=== PATIENT | female | born 1990 | race Caucasian/White ===

== ENCOUNTER 2018-12-31 08:12 | Inpatient (IN) ==
[2018-12-31] MEDS ORDERED: LACTATED RINGERS 250 ML IV ONE (08:48)
[2018-12-31] MEDS ORDERED: CARBOPROST TROMETHAMINE 250 MCG/ML AMP IM PRN (08:48)
[2018-12-31] MEDS ORDERED: miSOPROStol 200 MCG TABLET VAG PRN (08:48)
[2018-12-31] MEDS ORDERED: ONDANSETRON 4 MG/2 ML VIAL IV PRN ×2 (08:48→17:16)
[2018-12-31] MEDS ORDERED: ePHEDrine 50 MG/ML AMP IV PRN (08:48)
[2018-12-31] MEDS ORDERED: diphenhydrAMINE 50 MG/1 ML VIAL IV PRN (08:48)
[2018-12-31] MEDS ORDERED: hydrOXYzine HCL 25 MG/1 ML VIAL IM PRN (08:48)
[2018-12-31] MEDS ORDERED: NALOXONE 0.4 MG/ML VIAL IV PRN (08:48)
[2018-12-31] MEDS ORDERED: BUTORPHANOL 2 MG/ML VIAL IV PRN (08:48)
[2018-12-31] MEDS ORDERED: PROMETHAZINE 25 MG/1 ML VIAL IM PRN (08:48)
[2018-12-31] MEDS ORDERED: fentaNYL 2 MCG/ROPIV 0.2% EPID 100 ML EPIDURAL SCH (09:00)
[2018-12-31 09:10] LABS: Basophils % 0.1 % (0.0-0.8); Eosinophils % 0.4 % (0.00-10.9); Hematocrit 32.8 VOL% (35.7-47.0); Hemoglobin 10.4 GM/DL (12.0-16.0); Immature Granulocytes % 0.6 %; Immature Granulocytes Absolute 0.06 #; Lymphocytes # 1.2 10*3/uL (1.4-4.0); Lymphocytes % 12.1 % (21.3-54.2); Mean Corpuscular HGB Conc 31.7 GM/DL (32-36); Mean Corpuscular Hemoglobin 28 PG (27-34); Monocytes # 0.7 10*3/uL (0.11-0.8); Monocytes % 6.7 % (1.7-12.7); Neutrophils % 80.1 % (38.7-73.9); Platelet Count 198 T/CUMM (130-400); Red Blood Count 3.77 MC/CUMM (3.8-5.5); Red Cell Distribution Width 15.3 % (9.3-17.3); White Blood Count 9.9 T/CUMM (4-12)
[2018-12-31 09:46] LABS: Free T4 (Free Thyroxine) 1.03 NG/DL (0.76-1.46); Thyroid Stimulating Hormone 1.52 uIU/ml (0.358-3.74)
[2018-12-31] MEDS: FAMOTIDINE 20 MG/2 ML VIAL IV SCH (09:53)
[2018-12-31] MEDS ORDERED: CITRIC ACID/SODIUM CITRATE 30 ML UDCUP ONE (09:58)
[2018-12-31] MEDS: LACTATED RINGERS 1,000 ML IV SCH ×2 (10:17→13:17)
[2018-12-31] MEDS ORDERED: CITRIC ACID/SODIUM CITRATE 30 ML UDCUP PO ONE (10:17)
[2018-12-31] MEDS: OXYTOCIN/LR 20 UNIT/1,000 ML BAG IV SCH ×2 (11:02→17:18)
[2018-12-31] MEDS ORDERED: miSOPROStol 200 MCG TABLET ONE (15:59)
[2018-12-31] MEDS ORDERED: TRANEXAMIC ACID 1,000 MG/10 ML VIAL ONE (16:00)
[2018-12-31] MEDS ORDERED: OXYTOCIN/LR 20 UNIT/1,000 ML BAG IV ONE ×2 (16:00→17:16)
[2018-12-31] MEDS ORDERED: CARBOPROST TROMETHAMINE 250 MCG/ML AMP IM ONE (16:01)
[2018-12-31] MEDS ORDERED: METHYLERGONOVINE 0.2 MG/1 ML AMP ONE (16:01)
[2018-12-31] MEDS ORDERED: ESTROGENS (CONJ) VAG CREAM 30 GM TUBE VAG ONE (16:52)
[2018-12-31] MEDS ORDERED: LANOLIN 50% CREAM 0.3 OZ TUBE TOP PRN (17:16)
[2018-12-31] MEDS ORDERED: WITCH HAZEL PADS 100/JAR TOP PRN (17:16)
[2018-12-31] MEDS ORDERED: MEASLES/MUMPS/RUBELLA VACCINE 0.5 ML VIAL SUBCUT ONE (17:16)
[2018-12-31] MEDS ORDERED: RHO(D) IMMUNE GLOBULIN 300 MCG SYRINGE IM ONE (17:16)
[2018-12-31] MEDS ORDERED: BISACODYL 10 MG SUPP RECTAL PRN (17:16)
[2018-12-31] MEDS ORDERED: ACETAMINOPHEN 325 MG TABLET PO PRN (17:16)
[2018-12-31] MEDS ORDERED: DIPH/TET/ACEL PERT BOOSTER VACCINE 0.5 ML VIAL IM ONE (17:16)
[2018-12-31] MEDS ORDERED: BENZOCAINE 20%/MENTHOL 0.5% SPRAY 56 GM CAN TOP PRN (17:16)
[2018-12-31] MEDS ORDERED: HYDROCORTISONE 2.5% RECTAL CREAM 30 GM TUBE TOP PRN (17:16)
[2018-12-31] MEDS: IBUPROFEN 800 MG TABLET PO PRN (19:42)
[2018-12-31] MEDS: oxyCODONE/ACETAMINOPHEN 5-325 MG TABLET PO PRN (22:10)
[2018-12-31] MEDS: DOCUSATE SODIUM 100 MG CAPSULE PO SCH (22:12)
[2019-01-01] MEDS: IBUPROFEN 800 MG TABLET PO PRN ×4 (01:31→22:10)
[2019-01-01] MEDS: oxyCODONE/ACETAMINOPHEN 5-325 MG TABLET PO PRN ×3 (04:20→18:42)
[2019-01-01] MEDS: FAMOTIDINE 20 MG/2 ML VIAL IV SCH ×2 (05:10→18:31)
[2019-01-01 05:25] LABS: Basophils % 0.2 % (0.0-0.8); Eosinophils # 0.1 10*3/uL (0.0-0.87); Eosinophils % 0.7 % (0.00-10.9); Hematocrit 29.7 VOL% (35.7-47.0); Hemoglobin 8.9 GM/DL (12.0-16.0); Immature Granulocytes % 0.4 %; Immature Granulocytes Absolute 0.05 #; Lymphocytes # 1.5 10*3/uL (1.4-4.0); Lymphocytes % 12.9 % (21.3-54.2); Mean Corpuscular Hemoglobin 28 PG (27-34); Mean Corpuscular Volume 94.3 FL (87-102); Mean Platelet Volume 10.4 FL (9.6-12.0); Monocytes # 1.1 10*3/uL (0.11-0.8); Monocytes % 8.9 % (1.7-12.7); Neutrophils # 9.2 10*3/uL (1.4-7.4); Neutrophils % 76.9 % (38.7-73.9); Platelet Count 169 T/CUMM (130-400); Red Blood Count 3.15 MC/CUMM (3.8-5.5); Red Cell Distribution Width 15.4 % (9.3-17.3); White Blood Count 11.9 T/CUMM (4-12)
[2019-01-01] MEDS: DOCUSATE SODIUM 100 MG CAPSULE PO SCH ×2 (09:17→21:17)
[2019-01-02] MEDS: oxyCODONE/ACETAMINOPHEN 5-325 MG TABLET PO PRN (00:27)
[2019-01-02 09:16] VITALS: BP 105/68
[2019-01-02] MEDS: DOCUSATE SODIUM 100 MG CAPSULE PO SCH (10:03)
[2019-01-02] MEDS: IBUPROFEN 800 MG TABLET PO PRN (10:07)
== END 2019-01-02 12:20 | disposition home or self-care (01) | DRG 807 ==
LOC: N.LDOUT 08:12 → N.LD 08:14 → N.OB 21:05
PROVIDERS: ADMIT Obstetrics & Gynecology; ATTEND Obstetrics & Gynecology